=== PATIENT | female | born 1970 | race Caucasian/White ===

== ENCOUNTER → 2018-06-27 | Outpatient (CLI) | payer BC ==
[2018-06-27 17:34] LABS: Basophils % (A) 0 %; Eosinophils # (A) 0.3 k/uL (0-0.7); Eosinophils % (A) 5 %; HGB 14.6 gm/dL (11.4-16.0); Lymphocytes # (A) 1.8 k/uL (1.0-4.8); Lymphocytes % (A) 29 %; MCH 29.1 pg (25.0-35.0); MCHC 33.2 g/dL (31.0-37.0); MCV 87.5 fL (80.0-100.0); Mean Platelet Volume 6.9; Monocytes # (A) 0.4 k/uL (0-1.0); Monocytes % (A) 7 %; Neutrophils # (A) 3.4 k/uL (1.3-7.7); Neutrophils % (A) 56 %; Platelet Count 295 k/uL (150-450); RBC 5.03 m/uL (3.80-5.40); RDW 13.9 % (11.5-15.5)
[2018-06-27 17:46] LABS: C Reactive Protein 49.7 mg/L (<10.0)
[2018-06-27 18:42] LABS: Erythrocyte Sedimentation Rate 37 mm/hr (0-20)
[2018-06-28 01:25] LABS: Cyclic Citrullinated Pep IgG POSITIVE (NEGATIVE)
[2018-06-28 01:33] LABS: Rheumatoid Factor 441 IU/mL (0-15)
[2018-06-30 10:56] LABS: Uric Acid 4.7 mg/dL (3.7-7.4)
== END | disposition home or self-care (01) ==
LOC: LABWHC1 16:40
PROVIDERS: ATTEND Podiatrist Foot & Ankle Surgery
DX: B99.9 Unspecified infectious disease (principal); M19.90 Unspecified osteoarthritis, unspecified site
CPT/HCPCS: 36415; 84550; 85025; 85652; 86038; 86140; 86200; 86431